=== PATIENT | male | born 1970 ===

== ENCOUNTER 2020-07-20 12:28 | Inpatient (IN) ==
[2020-07-20] MEDS ORDERED: Ondansetron 4 mg VIAL 2 MG/ML 2 ml VIAL IV ONE (13:22)
[2020-07-20] MEDS ORDERED: NS 0.9% 500 ml BAG 500 ML IV ONE (13:22)
[2020-07-20] MEDS ORDERED: Morphine 4 MG/ML VIAL (1 ml) IV ONE (14:05)
[2020-07-20 14:13] LABS: ABS Lymphocytes 0.9 10^3/ul (1.0-4.8); ABS Monocytes 0.8 10^3/ul (0-0.8); ABS Neutrophils 5.1 10^3/ul (1.5-7.7); Hematocrit 48 % (42-52); Hemoglobin 16.1 g/dL (14.0-18.0); Lymphocyte % 12.9 %; Mean Corpuscular HGB Conc 34 g/dL (31-36); Mean Corpuscular Hemoglobin 29 pg (27-31); Mean Corpuscular Volume 85 fL (80-94); Platelet Count 152 10^3/uL (150-450); Red Blood Count 5.65 10^6 /uL (4.18-5.48); Red Cell Distribution Width 15 % (10-15); White Blood Count 6.8 10^3/uL (3.5-10.8)
[2020-07-20 14:16] LABS: Albumin 4.9 g/dL (3.2-5.2); CO2 Carbon Dioxide 25 mmol/L (22-32); Calcium 10.2 mg/dL (8.6-10.3); Chloride 100 mmol/L (101-111); Sodium 137 mmol/L (135-145)
[2020-07-20 14:22] LABS: ALT 13 U/L (7-52); Albumin/Globulin Ratio 1.1 (1-3); Alkaline Phosphatase 110 U/L (34-104); BUN/Creatinine Ratio 16.5 (8-20); Blood Urea Nitrogen 15 mg/dL (6-24); C Reactive Protein 18.13 mg/L (<8.01); EGFR African American 106.3 (>60); EGFR Non-African American 87.8 (>60); Globulin 4.3 g/dL (2-4); Glucose 110 mg/dL (70-100); Lipase 19 U/L (11.0-82.0); Total Protein 9.2 g/dL (6.4-8.9)
[2020-07-20 14:24] LABS: Anion Gap 12 mmol/L (2-11)
[2020-07-20] MEDS ORDERED: Iohexol 300 (CONTRAST) 10 ML SDV IV ONE (15:09)
[2020-07-20 22:24] LABS: Urine Appearance Clear; Urine Bilirubin Negative (Negative); Urine Blood Negative (Negative); Urine Color Yellow; Urine Glucose Negative (Negative); Urine Ketones 1+ (Negative); Urine Nitrite Negative (Negative); Urine Protein 2+(100 mg/dL) (Negative); Urine Urobilinogen Negative (Negative)
[2020-07-20 22:25] LABS: Urine Bacteria Absent (Absent); Urine Red Blood Cell 1+(3-5/hpf) (Absent); Urine White Blood Cell Absent (Absent)
[2020-07-20 22:46] LABS: Potassium Redraw 4.2 mmol/L (3.5-5.0)
[2020-07-21] MEDS: Enoxaparin 40 MG/0.4 ML SYR SUBCUT SCH ×2 (01:56→20:30)
[2020-07-21] MEDS: NS 0.9% 1000 ml BAG 1,000 ML IV SCH ×2 (04:09→18:15)
[2020-07-21 06:26] LABS: ABS Lymphocytes 1.2 10^3/ul (1.0-4.8); ABS Monocytes 0.9 10^3/ul (0-0.8); ABS Neutrophils 3.3 10^3/ul (1.5-7.7); Eosinophil % 0.7 %; Hematocrit 41 % (42-52); Hemoglobin 13.8 g/dL (14.0-18.0); Lymphocyte % 22.6 %; Mean Corpuscular HGB Conc 33 g/dL (31-36); Mean Corpuscular Hemoglobin 28 pg (27-31); Mean Corpuscular Volume 84 fL (80-94); Platelet Count 118 10^3/uL (150-450); Red Blood Count 4.92 10^6 /uL (4.18-5.48); Red Cell Distribution Width 14 % (10-15); White Blood Count 5.5 10^3/uL (3.5-10.8)
[2020-07-21 06:49] LABS: BUN/Creatinine Ratio 21.6 (8-20); Calcium 8.9 mg/dL (8.6-10.3); EGFR African American 110.5 (>60); EGFR Non-African American 91.3 (>60); Potassium 4.1 mmol/L (3.5-5.0)
[2020-07-21] MEDS ORDERED: HYDROmorphone 0.5 MG/0.5 ML SYRINGE IV SLOW PU PRN (08:07)
[2020-07-22] MEDS: NS 0.9% 1000 ml BAG 1,000 ML IV SCH ×2 (03:44→15:20)
[2020-07-22 05:03] LABS: ABS Eosinophils 0.1 10^3/ul (0-0.6); ABS Lymphocytes 1.1 10^3/ul (1.0-4.8); ABS Monocytes 0.9 10^3/ul (0-0.8); ABS Neutrophils 4.3 10^3/ul (1.5-7.7); Eosinophil % 0.9 %; Hematocrit 40 % (42-52); Hemoglobin 13.6 g/dL (14.0-18.0); Lymphocyte % 16.6 %; Mean Corpuscular HGB Conc 34 g/dL (31-36); Mean Corpuscular Hemoglobin 29 pg (27-31); Mean Corpuscular Volume 83 fL (80-94); Mean Platelet Volume 9.3 fL (7.4-10.4); Platelet Count 112 10^3/uL (150-450); Red Blood Count 4.78 10^6 /uL (4.18-5.48); Red Cell Distribution Width 14 % (10-15); White Blood Count 6.3 10^3/uL (3.5-10.8)
[2020-07-22 05:16] LABS: BUN/Creatinine Ratio 36.5 (8-20); Calcium 8.7 mg/dL (8.6-10.3); EGFR African American 134.9 (>60); EGFR Non-African American 111.5 (>60); Potassium 3.8 mmol/L (3.5-5.0)
[2020-07-22] MEDS ORDERED: Ondansetron 4 mg VIAL 2 MG/ML 2 ml VIAL IV PRN (08:36)
[2020-07-22] MEDS: Enoxaparin 40 MG/0.4 ML SYR SUBCUT SCH (21:32)
[2020-07-23] MEDS: NS 0.9% 1000 ml BAG 1,000 ML IV SCH ×3 (01:13→21:08)
[2020-07-23 06:10] LABS: BUN/Creatinine Ratio 34.4 (8-20); Calcium 8.3 mg/dL (8.6-10.3); EGFR African American 159.5 (>60); EGFR Non-African American 131.8 (>60); Potassium 3.6 mmol/L (3.5-5.0)
[2020-07-24 06:29] LABS: BUN/Creatinine Ratio 17.7 (8-20); EGFR African American 165.5 (>60); EGFR Non-African American 136.8 (>60); Potassium 3.3 mmol/L (3.5-5.0)
[2020-07-24] MEDS ORDERED: Potassium Chloride LIQUID 20 MEQ/15 ML LIQUID PO ONE (06:46)
[2020-07-24] MEDS: NS 0.9% 1000 ml BAG 1,000 ML IV SCH (07:09)
[2020-07-24 09:58] LABS: Magnesium 1.6 mg/dL (1.9-2.7)
[2020-07-24] MEDS ORDERED: Magnesium Sulfate IV 3 GM in NS 0.9% 100 ml BAG 100 ML IVPB ONE (11:00)
[2020-07-24 15:47] VITALS: BP 133/74
== END 2020-07-24 16:20 ==
LOC: ED 12:28 → SSU 20:44
PROVIDERS: ADMIT Hospitalist; ATTEND Internal Medicine